=== PATIENT | female | born 1995 | race American Indian/Alaskan Native ===

== ENCOUNTER 2017-02-26 08:14 | Observation (INO) | payer BC ==
[~2017-02-26] VITALS: Ht 170.2 cm; Wt 104.0 kg
--- NOTE | ~2017-02-26 | OR ---
PATIENT'S NAME: NORRIS SHAH [facility] AGE: 21 Y [address] ROOM: [place] [address] [place] [facility] [place]: 02/26/2017 OR/Procedure Report DISCHARGE DATE: 02/27/2017 FAMILY PHYSICIAN: Gaurang Craven MD ATTENDING PHYSICIAN: Lucas Murray SURGEON: Lucas Murray MD WOOD FORM BUILDER: None. DATE OF PROCEDURE: 02/26/2017 PREOPERATIVE DIAGNOSIS: Subglottic stenosis. POSTOPERATIVE DIAGNOSIS: Subglottic stenosis. PROCEDURES PERFORMED: 1. Microscopic direct laryngoscopy. 2. Rigid bronchoscopy. 3. Injection of steroids into the subglottis. 4. Balloon dilation of the subglottis. ANESTHESIA: General by mask. COMPLICATIONS: None. BLOOD LOSS: Less than 1 mL. SPECIMENS: None. FINDINGS: 1. 1.8 cm length of stenotic area including the subglottis and the proximal trachea. 2. 6 mm diameter of the stenosis. 3. No evidence of distal tracheal stenosis; however, there was a moderate amount of tracheomalacia noted. 4. Mainstem bronchi were normal. 5. Hilda was normal. 6. Glottic and supraglottic structures were normal. INDICATION: The patient is a 21-year-old female who, over the last few months, has had progressive shortness of breath, has been treated for asthma with inhalers, as well as pulmonary infections without relief. She has normally benefitted by steroid courses. She presented to clinic and was identified both on radiographic assessment by CT as well as flexible fiberoptic exam to have subglottic stenosis. Therefore, the above-mentioned surgeries were recommended, and she provided informed consent. PATIENT'S NAME: NORRIS SHAH [facility] AGE: 21 Y [address] ROOM: [place] [address] [place] [facility] [place]: 02/26/2017 OR/Procedure Report DISCHARGE DATE: 02/27/2017 FAMILY PHYSICIAN: Gaurang Craven MD ATTENDING PHYSICIAN: Lucas Murray DESCRIPTION OF PROCEDURE: The patient was brought to the operative suite and placed on the table in the supine position. All pressure points were padded. Assuring that the entire team was in place and ready as well as the equipment ready, we performed a time-out, correctly identifying the patient and the procedure. The patient was put to sleep with a combination of IV sedation as well as mask anesthesia and rotated 90 degrees to my position. After allowing for the anesthetic to take place, I initially viewed the supraglottic region with the Dedo laryngoscope, and 4% topical lidocaine was applied to the supraglottis and glottis. Mask anesthesia was returned. She did have some difficulty with mask anesthesia in terms of air exchange. This improved with a change in IV sedation. Once the anesthetic had taken effect, I again viewed the supraglottis and glottis and brought the subglottic region into view and then placed her suspension. A 4.5 endotracheal tube, uncuffed, was placed over the glottis, but not through the subglottic stenosis, to provide oxygenation and inhalational anesthetic. Once the patient was adequately oxygenated, a thin bronchoscopic telescope was utilized to perform distal tracheoscopy and bronchoscopy. No other areas of concern were identified within the distal trachea, hilda, or mainstem bronchi. Returning to the subglottic stenosis, this area was measured using the telescope at 1.8 cm in total length. The endotracheal tube was replaced in the glottic region for oxygenation. This was then removed once again, and we proceeded with injection of the steroids. A total of 2 mL of Kenalog at 40 mg/mL for a total of 80 mg was injected into the subglottic region in 3 points. Thereafter, a superior radial incision was made with sharp scissors. She was reoxygenated, and thereafter, the balloon catheter was placed with a total size at 16 mm in diameter into the subglottic region. This was inflated to its maximum pressure and held in place for 2 minutes. This was removed. This was repeated 2 more times for a total of 3 dilations at this area. At the conclusion, the area was suctioned and reevaluated. Photo-documentation was obtained. Significant dilation had been performed. There was no evidence of significant tearing or other injury. The balloon was retracted, as well as all of the endoscopic equipment, and the patient was returned to the care of Anesthesia for awakening via mask. The patient did awake with a mild stridor, but proceeded in a stable condition without desaturation to the postoperative unit for monitoring thereafter. She will be monitored overnight in the hospital. MD RONY TINSLEY/scotty PATIENT'S NAME: NORRIS SHAH [facility] AGE: 21 Y [address] ROOM: [place] [address] [place] [facility] [place]: 02/26/2017 OR/Procedure Report DISCHARGE DATE: 02/27/2017 FAMILY PHYSICIAN: Gaurang Craven MD ATTENDING PHYSICIAN: Lucas Murray /[id number] d: [id number] t: 03/05/17 0721, OPERATIVE SUMMARY
[~2017-02-26 08:14] MED LIST: ALBUTEROL2.5 MG/31 INH; BREO ELLIPTA 11 EACH INH; CEFTIN500 MG PO; DELTASONE20 MG PO; FLONASE 50 MCG/16 GM NOSE; PROVENTIL OR V6.7 GM INH; SINGULAIR10 MG PO; XYZAL5 MG PO
[2017-02-26 08:55] LABS: BASOPHIL % 0.2 %; EOSINOPHIL # 0.1 K/uL (0.0-0.5); EOSINOPHIL % 0.4 %; HEMOGLOBIN 13.3 g/dL (11.0-15.0); IMMATURE GRANULOCYTE # 0.1 K/uL (0.0-0.3); IMMATURE GRANULOCYTE % 0.4 %; LYMPHOCYTE # 4.1 K/uL (0.8-4.0); LYMPHOCYTE % 30.9 %; MCH 29.1 pg (27.0-34.0); MCHC 32.4 gm/dL (32.0-36.5); MCV 89.7 fl (83.0-98.0); MONOCYTE # 0.8 K/uL (0.0-1.0); MONOCYTE % 5.8 %; MPV 9.9 fl (9.4-12.4); NEUTROPHIL # (ANC) 8.3 K/uL (1.8-7.8); NEUTROPHIL % 62.3 %; NRBC % 0 /100WBC (0-0.00); PLATELET COUNT 308 K/uL (150-450); RBC 4.57 M/uL (3.50-5.00); RDW-CV 14.2 % (11.9-14.6); WBC 13.4 K/uL (4.0-11.0)
[2017-02-26 09:15] LABS: ALBUMIN 3.2 gm/dL (3.5-5.0); ALK PHOS 86 IU/L (33-138); ALT 22 IU/L (12-78); BLOOD UREA NITROGEN 14 mg/dL (6-24); CALCIUM 8.5 mg/dL (8.5-10.5); CHLORIDE 104 mMol/L (96-110); CO2 30 mMol/L (22-32); CREATININE 0.8 mg/dL (0.5-1.1); ESTIMATED GFR (MDRD EQUATION) > 60; SODIUM 140 mMol/L (135-145); TOTAL BILIRUBIN 0.3 mg/dL (0.0-1.5); TOTAL PROTEIN 7.1 g/dL (6.0-8.4)
[2017-02-26 09:16] LABS: ANION GAP 9.8 (10.0-19.0); AST 16 IU/L (10-40); POTASSIUM 3.8 mMol/L (3.7-5.1)
[2017-02-27] MEDS ORDERED: PROTONIX40 MG PO (08:52)
[2017-02-27] MEDS ORDERED: NORCO 5-325 TA1 EACH PO (08:53)
== END 2017-02-27 11:15 | disposition disaster alternative care site (69) ==
LOC: GSDC 08:14 → GMSU 17:08 → GSDC 17:09 → GMSU 17:09 → GSDC 02-27 11:15 → GMSU 02-27 11:15
PROVIDERS: Family Medicine; ADMIT Otolaryngology
PROC: 0C7S8ZZ Dilation of Larynx, Via Natural or Artificial Opening Endoscopic (ICD-10-PCS; principal; 2017-02-26)
PROC: 3E0F83Z Introduction of Anti-inflammatory into Respiratory Tract, Via Natural or Artificial Opening Endoscopic (ICD-10-PCS; 2017-02-26)
PROC: 0BJ08ZZ Inspection of Tracheobronchial Tree, Via Natural or Artificial Opening Endoscopic (ICD-10-PCS; 2017-02-26)
DX: J38.6 Stenosis of larynx (principal); Z88.0 Allergy status to penicillin; Z79.899 Other long term (current) drug therapy; Z23 Encounter for immunization
CPT/HCPCS: C1725; G0009; G0378; J0171; J1100; J2250; J2405; J3010; J3301; J7120